=== PATIENT | male | born 1955 | race African-American/Black ===

== ENCOUNTER 2018-02-11 19:25 | Emergency (ER) | payer MEDICARE ==
[2018-02-11 20:16] LABS: #Basophils 0.1 thou/uL (0.0-0.2); #Eosinphils 0.1 thou/uL (0.0-0.7); #Lymphocytes 3.1 thou/uL (1.20-3.40); #Monocytes 0.9 thou/uL (0.11-0.59); #Neutrophils 5.8 thou/uL (1.40-6.50); %Basophils 0.7 % (0.0-1.0); %Eosinophils 1.3 % (0.0-10.0); %Lymphocytes 31.1 % (21.0-51.0); %Monocytes 8.7 % (0.0-10.0); %Neutrophils 58.2 % (42.0-75.0); Hemoglobin 14.6 g/dL (14.0-18.0); Mean Corpuscular HGB CONC 33.6 g/dL (32.0-36.0); Mean Corpuscular Hemoglobin 28.4 pg (27.0-31.0); Mean Corpuscular Volume 84.5 fl (80.0-94.0); Mean Platelet Volume 7.1 fL (7.4-10.4); Platelet Count 192 thou/uL (130-400); RBC Distribution Width 13.2 % (11.5-14.5); Red Blood Cell (RBC) Count 5.14 mill/uL (4.70-6.10)
[2018-02-11 20:37] LABS: ALT (SGPT) 11 U/L (8-55); AST (SGOT) 12 U/L (5-34); Albumin 4.1 g/dL (3.4-4.8); Alkaline Phosphatase 84 U/L (40-150); Anion Gap 13 mmol/L (10-20); BUN (Urea Nitrogen) 19 mg/dL (8.4-25.7); Bilirubin, Total 0.4 mg/dL (0.2-1.2); Calc. Creatinine Clearance 0 mL/min (70-130); Calcium 9.7 mg/dL (7.8-10.44); Carbon Dioxide 29 mmol/L (23-31); Chloride 100 mmol/L (98-107); Estimated GFR-MDRD 46; Glucose 98 mg/dL (80-115); Potassium 3.9 mmol/L (3.5-5.1); Protein, Total 8.1 g/dL (5.8-8.1); Sodium 138 mmol/L (136-145)
[2018-02-11 21:25] LABS: Bilirubin Negative (Negative); Blood, Urine Negative (Negative); Clarity CLEAR (Clear); Glucose, Urine (Dipstick) Negative (Negative); Leukocyte Negative (Negative); Nitrite Negative (Negative); Protein, Urine (Dipstick) Negative (Neg-Trace); Specific Gravity, Urine 1.008 (1.002-1.036); pH, Urine 7.5 (5.0-9.0)
== END 2018-02-11 22:25 | disposition home or self-care (01) ==
LOC: ERS 19:25
DX: R25.2 Cramp and spasm (principal); E66.01 Morbid (severe) obesity due to excess calories; I10 Essential (primary) hypertension; F31.9 Bipolar disorder, unspecified; F17.210 Nicotine dependence, cigarettes, uncomplicated; Z71.6 Tobacco abuse counseling; Z79.52 Long term (current) use of systemic steroids; Z79.899 Other long term (current) drug therapy
CPT/HCPCS: 36415; 80053; 81003; 83735; 85025; 99406

== ENCOUNTER 2019-03-10 01:21 | Emergency (ER) | payer MEDICARE, SELFPAY ==
--- NOTE | 2019-03-10 07:50 | RAD ---
CHEST 2 VIEWS: HISTORY: Cough. COMPARISON: 10/04/2012. FINDINGS: Normal cardiac silhouette. Lungs and pleural spaces are clear. No consolidation or mass. No pneumo thorax or osseous abnormalities. IMPRESSION: No acute cardiopulmonary process. POS: OFF
== END 2019-03-10 02:13 | disposition home or self-care (01) ==
LOC: ERS 01:21
DX: J20.9 Acute bronchitis, unspecified (principal); I10 Essential (primary) hypertension; J44.9 Chronic obstructive pulmonary disease, unspecified; F17.210 Nicotine dependence, cigarettes, uncomplicated; Z79.899 Other long term (current) drug therapy; Z79.51 Long term (current) use of inhaled steroids
CPT/HCPCS: 71046; 93005; 94640; J7620

== ENCOUNTER 2025-09-14 11:07 | Emergency (ER) | payer OTHER ==
[2025-09-14 12:57] LABS: #Basophils Less than 0.03 10x3/uL (0.0-0.2); #Eosinophils 0.06 10x3/uL (0.0-0.7); #Monocytes 0.72 10x3/uL (0.11-0.59); #Neutrophils 5.96 10x3/uL (1.40-6.50); %Basophils 0.1 % (0.0-1.0); %Eosinophils 0.7 % (0.0-10.0); %Lymphocytes 19.0 % (21.0-51.0); %Monocytes 8.6 % (0.0-10.0); %Neutrophils 71.2 % (42.0-75.0); Hematocrit 42.2 % (42.0-52.0); Hemoglobin 14.2 g/dL (14.0-18.0); Mean Corpuscular Hemoglobin 27.2 pg (27.0-31.0); Mean Corpuscular Volume 80.8 fL (78.0-98.0); Platelet Count 184 10x3/uL (130-400); Red Blood Cell (RBC) Count 5.22 mill/uL (4.70-6.10); White Blood Cell (WBC) Count 8.37 10x3/uL (4.8-10.8)
[2025-09-14 13:13] LABS: ALT (SGPT) 15 U/L (Less than 45); AST (SGOT) 18 U/L (11-34); Albumin 3.4 g/dL (3.1-4.5); Alkaline Phosphatase 85 U/L (40-110); Anion Gap 12 mmol/L (10-20); BUN (Urea Nitrogen) 13 mg/dL (8.4-25.7); Bilirubin, Total 0.7 mg/dL (0.3-1.2); Calc. Creatinine Clearance 0 mL/min (70-130); Calcium 9.0 mg/dL (7.8-10.44); Carbon Dioxide 30 mmol/L (23-31); Chloride 96 mmol/L (98-107); Globulin 3.5 g/dL (2.4-3.5); Glucose 99 mg/dL (80-115); Lipase 12 U/L (8-78); Potassium 3.8 mmol/L (3.5-5.1); Sodium 134 mmol/L (136-145)
[2025-09-14 13:13] LABS: Glucose, Urine (Dipstick) Negative (Negative); Leukocyte Negative (Negative); Protein, Urine (Dipstick) Negative (Neg-Trace); Specific Gravity, Urine 1.010 (1.005-1.030)
[2025-09-14 13:26] LABS: CAUTI Indications for Culture Dysuria,urgency,freq; RBC/HPF 0-3 HPF (0-3); WBC/HPF None Seen HPF (0-3)
[2025-09-14 13:33] LABS: Bacteria/HPF 1+ HPF (None Seen)
[2025-09-14 13:34] LABS: Urine Culture Reflex No No
== END 2025-09-14 14:42 | disposition home or self-care (01) ==
LOC: ERS 11:07
DX: R10.A1 Flank pain, right side (principal); N28.89 Other specified disorders of kidney and ureter; R82.71 Bacteriuria; M62.838 Other muscle spasm; I48.92 Unspecified atrial flutter; I10 Essential (primary) hypertension; J44.9 Chronic obstructive pulmonary disease, unspecified; F17.210 Nicotine dependence, cigarettes, uncomplicated; Z79.51 Long term (current) use of inhaled steroids; Z79.01 Long term (current) use of anticoagulants; Z79.899 Other long term (current) drug therapy
CPT/HCPCS: 74176; 80053; 81001; 83690; 83880; 84484; 85025; 93005; 96374; J3010